=== PATIENT | male | born 1975 | race Caucasian/White ===

== ENCOUNTER 2018-08-09 12:04 | Emergency (ER) | payer BC ==
--- NOTE | 2018-08-09 12:09 | ED Physician Documentation ---
General Adult - HISTORIAN Historian: patient - HPI Stated Complaint: back pain Chief Complaint: General Adult Onset: hours Timing: still present Severity: moderate Further Comments: yes (Pt is a 42 yo male with c/o back pain. Pt has hx bulging lumbar discs and hx back surgery. Pt was leaning over to pet his dog when he felt pain in his back and tingling in his L leg. Pain is 8/10 severity.) - ROS CONST: no problems EYES/ENT: none CVS/RESP: none GI/: none MS/SKIN/LYMPH: back pain NEURO/PSYCH: tingling (in L leg) - PAST HX Past History: other (Anxiety/Depression, Thyroid d/o) Surgeries/Procedures: other (Discectomy, Ortho surg.) Allergies/Adverse Reactions: Allergies Allergy/AdvReac Type Severity Reaction Status Date / Time No Known Allergies Allergy Verified 08/09/18 12:53 Home Medications: Ambulatory Orders Medication Instructions Recorded Ibuprofen 800 mg PO TID 08/09/18 Levothyroxine Sodium [Synthroid] 125 mcg PO DAILY 08/09/18 Sertraline HCl 200 mg PO DAILY 08/09/18 - SOCIAL HX Smoking History: non-smoker - FAMILY HX Family History: No - REVIEWED ASSESSMENTS Nursing Assessment Reviewed: Yes Vitals Reviewed: Yes Progress - Progress Progress: Toradol 60 mg IM Diazepam 10 mg po improved [place] (5/325) 2 tabs po in ER. Rx [place] (5/325) 1-2 po q 4-6 h prn moderate to severe pain. Rx Flexeril 10 mg. 1 po q 8 hrs prn muscle spasm. f/u pcp/ortho prn. General Adult Physical Exam - PHYSICAL EXAM GENERAL APPEARANCE: moderate distress (obese) NECK: normal inspection, supple RESPIRATORY: no resp distress, chest non-tender, breath sounds normal CVS: reg rate & rhythm, heart sounds normal, equal pulses ABDOMEN: soft, no organomegaly, normal bowel sounds BACK: normal inspection, no CVA tenderness, other (L paralumbar muscle spasm) EXTREMITIES: non-tender, normal range of motion, no evidence of injury NEURO: oriented X3, motor nml, sensation nml Discharge Clincal Impression: Acute back pain Qualifiers: Back pain location: low back pain Back pain laterality: left Sciatica presence: with sciatica Sciatica laterality: sciatica of left side Qualified Code(s): M54.42 - Lumbago with sciatica, left side Referrals: Ion Raya MD [Primary Care Provider] - Condition: Stable Disposition: 01 HOME, SELF-CARE Decision to Admit: NO Decision Time: 15:00
[2018-08-09] MEDS ORDERED: KETOROLAC TROMETHAMINE 60 MG/2 ML VIAL IM ONE (12:13)
[2018-08-09] MEDS ORDERED: DIAZEPAM 5 MG TABLET PO ONE (12:13)
[2018-08-09] MEDS ORDERED: HYDROcodone /APAP 5/325 1 EACH TABLET PO ONE (14:09)
[2018-08-09 15:10] VITALS: BP 132/71
== END 2018-08-09 14:59 | disposition home or self-care (01) ==
LOC: ED 12:04
DX: M54.42 Lumbago with sciatica, left side (principal)
CPT/HCPCS: A9270; J1885; 96372